=== PATIENT | female | born 1995 | race Caucasian/White ===

== ENCOUNTER 2017-08-19 11:58 | Emergency (ER) | payer OTHER ==
[~2017-08-19] VITALS: Ht 170.2 cm; Wt 90.6 kg
[~2017-08-19 11:58] MED LIST: ATV/1 PO; BUPR-79 PO; CHOL100040 PO; CIPR-255 PO; CRY28 PO; EFF/375 PO; EFF75 PO; LEVO88TA PO; MXL10 PO; PANT40TA PO
[2017-08-19 12:00] VITALS: Ht 170.2 cm; Wt 90.6 kg
--- NOTE | 2017-08-19 12:27 | EMERGENCY ROOM VISIT NOTE ---
History First contact with patient: 12:10 Chief Complaint: HEAD INJURY (MINOR) Stated Complaint: HEAD INJURY,VOMITING History of Present Illness The patient is a 21 year old female who presents to the Emergency Room with complaints of a closed head injury. The patient reports that last night, she was playing with her cat and struck her head off of her metal bed frame. She states that she felt nauseous and vomited one time right afterward. Today, her nausea has resolved but she still has a mild headache as well as sensitivity to loud noises and bright lights. She states the injury occurred approximately 10 hours ago. She rates her overall discomfort a 2/10. She denies any confusion, numbness, weakness, blurred vision or slurred speech. Review of Systems A complete 10 point review of systems was reviewed with the patient with pertinent positives and negatives as per history of present illness. All else were negative. Past Medical/Surgical History Medical Problems: (1) Anemia (2) Anxiety (3) Cabello esophagus (4) Bronchitis (5) Stomach problems Surgical Problems: (1) History of wisdom tooth extraction Family History FH: sleep apnea Fhx: arrythmia Social History Smoking Status: Never Smoker Alcohol Use: occasionally Drug Use: none Marital Status: single Housing Status: lives alone Occupation Status: employed, [employer] student Current/Historical Medications Scheduled Cholecalciferol (Vitamin D-1000), 2,000 UNITS PO QAM Levothyroxine Sodium (Synthroid), 88 MCG PO QAM Pantoprazole (Protonix), 40 MG PO QAM Venlafaxine Hcl (Effexor), 37.5 MG PO DAILY Scheduled PRN Lorazepam (Ativan), 1 MG PO Q6H PRN for Anxiety/Agitation Rizatriptan Benzoate (Rizatriptan Benzoate), 10 MG PO UD PRN for Migraine Miscellaneous Medications Iud's (Paragard Intrauterine Core Carrier) Physical Exam Vital Signs Date Time Temp Pulse Resp B/P (MAP) Pulse Ox O2 Delivery O2 Flow Rate FiO2 08/19/17 12:32 36.7 83 16 114/76 97 08/19/17 12:04 16 97 08/19/17 12:00 36.7 83 16 114/76 97 Room Air Physical Exam VITALS: Vitals are noted on the nurse's note and reviewed by myself. Vital signs stable. GENERAL: This is a 21-year-old female, in no acute distress, nondiaphoretic, well-developed well-nourished. SKIN: The skin was without erythema, edema, or bruising. EARS: External auditory canals clear, tympanic membranes pearly michaels without erythema or effusion bilaterally. No hemotympanum. EYES: Pupils equal round and reactive to light and accommodation. Extraocular movements intact. MOUTH: Mucous membranes moist. NECK: Supple without nuchal rigidity. Cervical spine is nontender. HEART: Regular rate and rhythm without murmurs gallops or rubs. LUNGS: Clear to auscultation bilaterally without wheezes, rales or rhonchi. MUSCULOSKELETAL: Strength 5/5 throughout. NEURO: Patient was alert and oriented to person place and time. Deep tendon reflexes 2+ throughout. No focal neurological deficits. Medical Decision & Procedures Medical Decision Differential diagnosis includes concussion, subarachnoid hemorrhage, epidural hematoma, subdural hematoma, skull fracture, among others. The patient was evaluated as above. The patient is well-appearing. There is no evidence of a significant head injury on exam or by history. The patient was reassured. Head injury precautions were reviewed with the patient. She will follow-up with her primary care provider as needed. She verbalized understanding of my assessment and treatment plan and was discharged home in good condition. Head Trauma GCS Score: 15 Medication Reconcilliation Current Medication List: was personally reviewed by me Blood Pressure Screening Patient's blood pressure: Normal blood pressure Impression Primary Impression: Closed head injury Departure Information Dispostion Home / Self-Care Condition GOOD Referrals No Doctor, Assigned (PCP) Patient Instructions ED Head Injury Closed, My [facility] Additional Instructions You have been treated in the Emergency Department for a Closed Head Injury. For pain control, you can use the following [id number] medicines (if >12 yo): - Regular strength (325mg/tab) Tylenol (acetaminophen) 2 tabs every 4-6 hours as needed. Do not exceed 12 tablets in a 24 hour period. Avoid taking more than 4 grams (4000 mg) of Tylenol per day. This includes any other sources of acetaminophen you may take on a regular basis. You should relax in a quiet, dark place for the rest of the day. Avoid any possible triggers including: cigarette smoke, caffeine, nicotine, chocolate, wine, beer, loud noises or music, or bright lights. Follow-up with your primary care provider as needed for any persistent or worsening symptoms. Return to the Emergency Department if your current symptoms worsen despite treatment course outlined above, or if you develop any of the following symptoms : intractable pain despite aforementioned treatment course, visual disturbances , loss of vision, unilateral weakness or facial drooping, slurring of speech, loss of coordination, or loss of consciousness. Problem Qualifiers Primary Impression: Closed head injury Encounter type: initial encounter Qualified Codes: S09.90XA - Unspecified injury of head, initial encounter
[2017-08-19] MEDS ORDERED: RIZA1TAB7 PO (12:29)
[2017-08-19] MEDS ORDERED: IUD'IUD (12:29)
[2017-08-19 12:32] VITALS: BP 114/76; PULSE 83; TEMP 36.7; O2SAT 97
== END 2017-08-19 12:32 | disposition home or self-care (01) ==
LOC: C.EDB 12:00 → C.EDD 12:32
DX: S09.90XA Unspecified injury of head, initial encounter (principal); W22.8XXA Striking against or struck by other objects, initial encounter; Y92.013 Bedroom of single-family (private) house as the place of occurrence of the external cause; D64.9 Anemia, unspecified; F41.9 Anxiety disorder, unspecified; K22.70 Barrett's esophagus without dysplasia; Z82.49 Family history of ischemic heart disease and other diseases of the circulatory system; Z79.899 Other long term (current) drug therapy

== ENCOUNTER 2023-09-27 05:44 | Inpatient (IN) ==
--- NOTE | 2023-09-18 13:23 | Anesthesiology Consultation ---
Date of Service September 18, 2023 Assessment & Plan (1) Encounter for pre-operative examination: - Per core carrier on 09/18/23: No known infectious disease contacts, current infectious disease symptoms in past 10 days or COVID positive test result in the past 30 days. Chart Review Chart Review: data entry operator initiated History Surgery Operation Date: 09/27/23 07:30 Proposed Procedures p Section (Delivery of Baby Through Abdominal Incision) - Jayda Graf, Height/Weight Height: 5 ft 7 in Weight: 97.522 kg Allergies Allergy/AdvReac Type Severity Reaction Status Date / Time Sulfa (Sulfonamide Allergy Intermediate unsure - Verified 09/18/23 13:14 Antibiotics) as a child latex Allergy Unknown RASH WITH Verified 09/18/23 13:14 EXTENDED USE Medications Home Medications Medication Instructions Recorded Confirmed Last Taken cetirizine 10 mg tablet (Zyrtec) 10 mg PO DAILY PRN ALLERGIES 08/05/21 09/18/23 12/18/22 07:00 psyllium husk 0.52 gram capsule 0.52 g PO QAM 05/18/22 09/18/23 12/18/22 07:00 (Fiber (psyllium husk)) [id number] 1 dose PO QAM 02/01/23 09/18/23 Unknown [ Formula-DHA] pantoprazole 40 mg tablet,delayed 40 mg PO QAM #90 tabs 06/25/23 09/18/23 Unknown release levothyroxine 125 mcg tablet 125 mcg PO QAM 06/26/23 09/18/23 Unknown venlafaxine 150 mg 150 mg PO QAM #90 caps 08/30/23 09/18/23 Unknown capsule,extended release 24 hr Iron-C 1 tab PO Q OTHER DAY 09/18/23 09/18/23 Unknown Past Medical History Medical History Anemia Anxiety Barretts esophagus Depression GERD (gastroesophageal reflux disease) Hx of migraines Hypothyroidism Palpitations Previously evaluated by cardiology - + PVCs.; "TENDS TO GET THEM WHEN SHE IS STRESSED" Sciatic pain LEFT SIDE Past Family History Family History Grandmother (Maternal) Lung cancer Uncle Clotting disorder Father Parkinson disease Mother Thyroid disease Awais's disease Denies family history of Ovarian cancer Prostate cancer Diabetes Myocardial infarction Breast cancer Colorectal cancer Stroke Past Surgical History Surgical History History of esophagogastroduodenoscopy (EGD) Hx of colonoscopy Hx of wisdom tooth extraction S/P epidural steroid injection FEW YEARS AGO, "SLIPPED DISC IN HER L4-L5 AREA" Social History Smoking Status: Never smoker Do You Dip or Chew Tobacco: No Hx Alcohol Use: Yes Alcohol type: hard liquor alcohol intake frequency: holidays/special occasions only Hx Substance Use: No substance use type: does not use Lab Results Anesthesia Preop Results Results Anesthesia Widget: TSH 2.162 uIu/ml (0.300-4.500) 08/31/23
--- NOTE | 2023-09-26 13:31 | History & Physical Report ---
Date of Service September 26, 2023 Assessment & Plan (1) Supervision of normal first : Plan: Reviewed consent in office. Plan for primary section. Questions answered. History of Present Illness Chief Complaint: elective primary section Primary Care Provider: Bony iSmeon, DO 27yo with EDC 09/29/23 electing primary section. 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 *plan echo-[facility] [place]06/12/23-normal Hypothyroid *Check TFTs Q4wks Influenza Vaccination given 05/11/23 - SP C/S SCHEDULED FOR 10/05/[address] C/S RESCHEDULED FOR 09/27/[address] JORDON OSWALD Allergies Allergy/AdvReac Type Severity Reaction Status Date / Time Sulfa (Sulfonamide Allergy Intermediate unsure - Verified 09/26/23 10:40 Antibiotics) as a child latex Allergy Unknown RASH WITH Verified 09/26/23 10:40 EXTENDED USE Home Medications Medication Instructions Recorded Confirmed Type cetirizine 10 mg tablet (Zyrtec) 10 mg PO DAILY PRN ALLERGIES 08/05/21 09/26/23 History psyllium husk 0.52 gram capsule 0.52 g PO QAM 05/18/22 09/26/23 History (Fiber (psyllium husk)) [id number] 1 dose PO QAM 02/01/23 09/26/23 History [ Formula-DHA] pantoprazole 40 mg tablet,delayed 40 mg PO QAM #90 tabs 06/25/23 09/26/23 Rx release levothyroxine 125 mcg tablet 125 mcg PO QAM 06/26/23 09/26/23 History venlafaxine 150 mg 150 mg PO QAM #90 caps 08/30/23 09/26/23 Rx capsule,extended release 24 hr Iron-C 1 tab PO Q OTHER DAY 09/18/23 09/26/23 History Patient History Medical History Anemia Anxiety Barretts esophagus Depression GERD (gastroesophageal reflux disease) Hx of migraines Hypothyroidism Palpitations Previously evaluated by cardiology - + PVCs.; "TENDS TO GET THEM WHEN SHE IS STRESSED" Sciatic pain LEFT SIDE Surgical History History of esophagogastroduodenoscopy (EGD) Hx of colonoscopy Hx of wisdom tooth extraction S/P epidural steroid injection FEW YEARS AGO, "SLIPPED DISC IN HER L4-L5 AREA" Family History Grandmother (Maternal) Lung cancer Uncle Clotting disorder Father Parkinson disease Mother Thyroid disease Awais's disease Denies family history of Ovarian cancer Prostate cancer Diabetes Myocardial infarction Breast cancer Colorectal cancer Stroke Social History Smoking Status: Never smoker Second Hand Exposure: No; Do You Dip or Chew Tobacco: No; Hx Alcohol Use: Yes Alcohol type: hard liquor Alcohol type Comment: cocktails Alcohol Intake Frequency: Monthly or Less Alcohol Intake Frequency Comment: once a week Hx Substance Use: No Preferred Language: Divehi Communication Ability: Effective Visual Impairment: Limited Hearing Ability: Normal 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 Beliefs That Will Affect Care: None marital status: Single marital status details: Terence Conner 30 Current Living Situation: Spouse and Family current occupational status: employed current occupation: [employer] How many Children do You have: 0 Feels Safe at Home: Yes Childhood Exposure to Second-Hand Smoke: No caffeine: Yes Dental Care, Regularly: Yes Physical Activity Frequency: 3-4 Times per Week Seatbelt Use: always Sunscreen Use: Yes (most times ) Assistive Devices: Glasses Review of Systems All systems reviewed & are unremarkable except as noted in HPI & below Physical Exam Constitutional: WD/WN, vitals as above Respiratory: normal respiratory effort, lungs clear to auscultation no respiratory distress Cardiovascular: Rate/Rhythm: regular rate and regular rhythm Gastrointestinal (Abdomen): Inspection/Auscultation: abdomen normal to inspection Percussion/Palpation: abdomen soft; abdomen nontender Gravid. No s/s chorio or abruption. Skin: no rashes, warm and dry Psychiatric: A+Ox3, euthymic affect Coding Level of Care Code None Diagnoses Supervision of normal first Z34.00
[2023-09-27] MEDS: LACTATED RINGER'S 1,000 ML IV SCH (06:10)
[2023-09-27 06:19] LABS: Basophils # (auto) 0.06 K/uL (0.00-0.20); Basophils % (auto) 0.7 %; Eosinophils # (auto) 0.07 K/uL (0.00-0.50); Eosinophils % (auto) 0.8 %; Hematocrit (blood only) 35.7 % (37.0-47.0); Immature Granulocytes # (auto) 0.08 K/uL (0.01-0.20); Immature Granulocytes % (auto) 0.9 %; Lymphocytes # (auto) 2.56 K/uL (1.20-3.40); Lymphocytes % (auto) 28.8 %; Mean Corpuscular Hemoglobin 24.6 pg (25.0-34.0); Mean Corpuscular Hgb Conc 30.8 g/dL (32.0-36.0); Mean Corpuscular Volume 79.7 fL (80.0-100.0); Mean Platelet Volume 11.5 fL (9.4-12.4); Monocytes # (auto) 1.06 K/uL (0.11-0.59); Monocytes % (auto) 11.9 %; Neutrophils # (auto) 5.05 K/uL (1.40-6.50); Neutrophils % (auto) 56.9 %; Platelet Count 217 K/uL (130-400); RDW Coefficient of Variation 18.3 % (11.5-14.5); Red Blood Count 4.48 M/uL (4.20-5.40); White Blood Count 8.88 K/ul (4.8-10.8)
[2023-09-27] MEDS ORDERED: OXYTOCIN 10 UNITS/ML VIAL ONE (06:50)
[2023-09-27] MEDS ORDERED: MoRPHine SULFATE PF 1 MG/ML 10 ML AMP/VIAL ONE (06:52)
[2023-09-27] MEDS ORDERED: PHENYLEPHRINE 100MCG/ML 10ML SYR IV ONE (06:52)
[2023-09-27] MEDS ORDERED: fentaNYL citrate PF 100 MCG/2 ML VIAL ONE (06:52)
[2023-09-27] MEDS ORDERED: ONDANSETRON INJ 2 MG/ML 2 ML VIAL ONE (06:52)
[2023-09-27] MEDS: CITRIC ACID/SODIUM CITRATE 15 ML UDC PO SCH (07:10)
--- NOTE | 2023-09-27 07:18 | History & Physical Bridge Note ---
Date of Service September 27, 2023 History & Physical Bridge Note I have examined the patient, reviewed the History & Physical and in the interval since the performance of the History & Physical I have noted the following changes of clinical significance: no changes noted
[2023-09-27] MEDS: ceFAZolin 2000MG 2,000 MG/15 ML SYR IV SCH (07:35)
[2023-09-27] MEDS ORDERED: NALOXONE HCL 1 MG in SODIUM CHLORIDE 0.9% 1,000 ML IV PRN (08:11)
[2023-09-27] MEDS ORDERED: HYDROmorphone INJ 0.5 MG/0.5 ML SYR IV PRN (08:11)
[2023-09-27] MEDS ORDERED: NALOXONE HCL 0.08 MG in SYRINGE 1.8 ML IV PRN (08:11)
[2023-09-27] MEDS ORDERED: ePHEDrine sulfate 50 MG/ML AMP IV PRN (08:11)
[2023-09-27] MEDS ORDERED: LACTATED RINGER'S 500 ML IV PRN (08:11)
[2023-09-27] MEDS ORDERED: ONDANSETRON INJ 2 MG/ML 2 ML VIAL IV PRN (08:11)
[2023-09-27] MEDS ORDERED: diphenhydrAMINE 50 MG/ML VIAL IV PRN (08:11)
[2023-09-27] MEDS ORDERED: PROMETHAZINE HCL 6.25 MG in SODIUM CHLORIDE 0.9% 50 ML IV PRN (08:11)
[2023-09-27] MEDS ORDERED: NALBUPHINE HCL 5 MG in SYRINGE 0 ML IV PRN (08:11)
[2023-09-27] MEDS ORDERED: NALOXONE HCL 0.4 MG/1 ML VIAL/CARP IV PRN (08:11)
[2023-09-27] MEDS ORDERED: NO NARCOTICS OR SEDATIVES SCH (08:15)
[2023-09-27] MEDS ORDERED: DC INTRASPINAL MORPHINE SCH (08:15)
[2023-09-27 08:44] LABS: Base Excess Cord Venous Blood -1.8 mEq/L (-7.7-1.9); Cord Venous Blood HCO3 24 mmol/L (18.4-26.8); Cord Venous Blood PCO2 42 mmHg (30.4-57.2); Cord Venous Blood PO2 22 mmHg (14.1-43.3); Cord Venous Blood pH 7.36 (7.20-7.44); O2 Saturation Cord Venous Bld < 60.0 % (<68)
--- NOTE | 2023-09-27 08:50 | Operative Report ---
PG Post Operative Report Pre & Post Diagnosis Operation Date: 09/27/23 07:30 Pre-Op Diagnosis: 1. Term 2. Elective primary Post-Op Diagnosis: same I identified the patient and participated in the time-out.: Yes Procedure Operation Date: 09/27/23 07:30 Actual Procedures p Section in LD; primary low transverse section for the of a live boy infant at 0804 - Jayda Graf DO Surgeon Jayda Graf DO Rail Equipment Operator Tresa Morales RN Estimated Blood Loss 600 Findings Consistent with Post-Op Diagnosis Viable male , Apgars 8/8. Weight pending, please see nursery records. Normal appearing uterus, tubes, ovaries. Specimens placenta, cord blood, cord gas Drains gustafson, clear yellow Anesthesia Type Spinal Complications none Disposition Accompanied Patient To Recovery: No Indications 27yo @ 39 5/7, elective primary section. Description of Procedure The patient was seen in her labor and delivery room, risks benefits and alternatives to surgery were reviewed. Informed consent obtained. Questions were answered. She was taken to the operating room, spinal anesthesia was administered. She was then prepared and draped in the usual sterile fashion in the supine position with a leftward tilt. Timeout was confirmed. A Pfannenstiel skin incision was made with a scalpel, and carried through to the underlying layer of fascia. Fascia was nicked at midline, and this incision was extended bilaterally. The superior aspect of the fascial incision was grasped with Pantera clamps x2, elevated off the underlying rectus abdominis muscles, and dissected sharply and bluntly. In similar fashion, the inferior aspect of the fascial incision was dissected. The rectus abdominis muscles were , and the peritoneum was entered bluntly digitally. This was extended bilaterally. The bladder flap was taken down carefully using Metzenbaum scissors. Using a new scalpel, a low transverse uterine incision was created. Clear amniotic fluid noted. The was delivered from a cephalic presentation. The head delivered, followed by shoulders and body. Spontaneous cry on the field. The cord was doubly clamped and cut, and the infant was handed off to the waiting systems coordinator. A segment was retained for cord gases. Cord blood was obtained. The placenta was delivered spontaneously intact. The uterus was exteriorized, and cleared of all clots and debris. The hysterotomy incision was reapproximated using 0 Vicryl in a running locked stitch. A second layer of the same suture was used to imbricate the incision. Posterior uterus was evaluated and normal. The uterus was returned to the abdomen, and gutters were cleared of clots and debris. Excellent hemostasis was observed. The fascial incision was reapproximated using 0 Vicryl in a running stitch. The subcutaneous tissue was irrigated, and reapproximated using 2-0 plain gut in a running stitch. The skin was reapproximated using 4-0 Vicryl in a running subcuticular stitch. Steri-Strips and a bandage were applied. The patient tolerated the procedure well, and will be taken to the recovery area in stable and good condition. Sponge, needle, instrument counts correct x 2. I attest to the content of the Intraoperative Record and any orders documented therein. Any exceptions are noted below. OB Procedure Charges 74955
--- NOTE | 2023-09-27 08:52 | Anesthesiology Progress Note ---
Date of Service September 27, 2023 Anesthesia Post Procedure Vital Signs Vital Signs: Temp Pulse Resp BP Pulse Ox 09/27/23 08:48 98 H 120/61 100 09/27/23 06:10 123 H 110/68 09/27/23 05:57 36.7 C 18 Transfer of Care Handoff Completed per policy Notes Mental Status: alert / awake / arousable and participated in evaluation Patient Amnestic to Procedure: No Nausea / Vomiting: adequately controlled Pain: adequately controlled Airway Patency, RR, SpO2: stable & adequate BP & HR: stable & adequate Hydration State: stable & adequate Neuraxial Anesthesia: was administered and sensory block is resolving Anesthetic Complications: no major complications apparent and Pt Satisfied with anesthetic care
[2023-09-27] MEDS ORDERED: SENNA 8.6 MG TAB PO PRN (09:38)
[2023-09-27] MEDS ORDERED: MAGNESIUM HYDROXIDE SUSP 30 ML UDC PO PRN (09:38)
[2023-09-27] MEDS ORDERED: CETIRIZINE HCL 10 MG TABLET PO PRN (09:38)
[2023-09-27] MEDS ORDERED: HYDROCORTISONE ACETATE 25 MG SUPP PR PRN (09:38)
[2023-09-27] MEDS ORDERED: BENZOCAINE 20% SPRY 85 APPLN/85 GM CAN EXT PRN (09:38)
[2023-09-27] MEDS: KETOROLAC 30 MG/ML VIAL IV PRN (10:00)
[2023-09-27] MEDS: OXYTOCIN 30 UNITS/LR 1,003 ML IV SCH (12:05)
[2023-09-27] MEDS: LEVOTHYROXINE SODIUM 137 MCG TABLET PO SCH (15:28)
[2023-09-27] MEDS: PANTOprazole 40 MG TAB PO SCH (15:28)
[2023-09-27] MEDS: VENLAFAXINE HCL XR 150 MG CAPXR PO SCH (15:28)
[2023-09-27] MEDS: SIMETHICONE 80 MG CHEW PO SCH (15:31)
[2023-09-27] MEDS: DIPHTHER/TETAN/PERTUS Vaccine (Tdap, Adol/Adult) 0.5mL IM ONE (15:40)
[2023-09-27] MEDS: DOCUSATE SODIUM 100 MG CAP PO SCH (21:06)
[2023-09-28] MEDS ORDERED: KETOROLAC 30 MG/ML VIAL IV PRN (02:12)
[2023-09-28] MEDS ORDERED: diphenhydrAMINE 50 MG/ML VIAL IV PRN (02:12)
[2023-09-28] MEDS ORDERED: PROMETHAZINE HCL 25 MG in SODIUM CHLORIDE 0.9% 50 ML IV PRN (02:12)
[2023-09-28] MEDS ORDERED: ONDANSETRON INJ 2 MG/ML 2 ML VIAL IV PRN (02:12)
[2023-09-28] MEDS ORDERED: diphenhydrAMINE Capsule 25 MG CAP PO PRN (02:12)
[2023-09-28] MEDS: IBUPROFEN 600 MG TAB PO PRN (02:32)
[2023-09-28 06:24] LABS: Basophils # (auto) 0.05 K/uL (0.00-0.20); Basophils % (auto) 0.4 %; Eosinophils # (auto) 0.04 K/uL (0.00-0.50); Eosinophils % (auto) 0.4 %; Hematocrit (blood only) 33.1 % (37.0-47.0); Hemoglobin 10.2 g/dl (12.0-16.0); Immature Granulocytes % (auto) 0.9 %; Lymphocytes # (auto) 1.79 K/uL (1.20-3.40); Lymphocytes % (auto) 15.7 %; Mean Corpuscular Hemoglobin 24.7 pg (25.0-34.0); Mean Corpuscular Hgb Conc 30.8 g/dL (32.0-36.0); Mean Corpuscular Volume 80.1 fL (80.0-100.0); Mean Platelet Volume 12.4 fL (9.4-12.4); Monocytes # (auto) 1.05 K/uL (0.11-0.59); Monocytes % (auto) 9.2 %; Neutrophils # (auto) 8.39 K/uL (1.40-6.50); Neutrophils % (auto) 73.4 %; Platelet Count 178 K/uL (130-400); RDW Coefficient of Variation 18.3 % (11.5-14.5); RDW Standard Deviation 51.2 fL (36.4-46.3); Red Blood Count 4.13 M/uL (4.20-5.40); White Blood Count 11.42 K/ul (4.8-10.8)
[2023-09-28] MEDS: SODIUM CHLORIDE 0.9% 1,000 ML IV SCH (07:12)
[2023-09-28] MEDS: MoRPHine SULFATE PF 1 MG/ML 10 ML AMP/VIAL INT SPINAL ONE (07:12)
--- NOTE | 2023-09-28 07:35 | Obstetrical Progress Note ---
Date of Service September 28, 2023 Assessment & Plan (1) care following delivery: POD#1 doing well. well. Would prefer to avoid ibuprofen if possible, as it irritates her stomach. Continue routine postop care. Anticipate DC home tomorrow. Subjective Ambulation: ambulating normally Voiding: no voiding problems Diet Tolerance:: regular diet Lochia:: Moderate Review of Systems All systems reviewed & are unremarkable except as noted in HPI & below Physical Exam Constitutional WD/WN, vitals as above no acute distress Respiratory normal respiratory effort Cardiovascular Rate/Rhythm: regular rate and regular rhythm Gastrointestinal (Abdomen) Inspection/Auscultation: abdomen normal to inspection; abdomen not distended Percussion/Palpation: abdomen soft Genitourinary OB Exam Abdomen: + fundal height Fundus: + firm; not tender Results & Data Vital Signs (Past 12 Hours) Vital Signs Temp Pulse Pulse Resp BP Pulse Ox O2 Del Method 09/28/23 04:13 36.6 C 88 16 94/57 L 97 Room Air 09/28/23 02:09 18 95 09/28/23 01:10 16 96 09/28/23 00:26 16 97 09/28/23 00:00 36.6 C 88 16 111/74 97 Room Air 09/27/23 23:34 18 97 09/27/23 22:35 16 96 09/27/23 21:45 16 98 09/27/23 20:50 20 100 09/27/23 19:37 Room Air 09/27/23 19:37 18 97
[2023-09-28] MEDS: PRENATAL VITAMIN 1 TAB PO SCH (08:16)
[2023-09-28] MEDS: FERROUS SULFATE 325 MG TAB PO SCH (08:16)
[2023-09-28] MEDS: ACETAMINOPHEN 500 MG TAB PO PRN (11:00)
[2023-09-28] MEDS: oxyCODONE/ACETAMINOPHEN 5mg/325mg TAB PO PRN (17:19)
[2023-09-28] MEDS: bisacodyL 5 MG TABEC PO SCH (22:18)
[2023-09-29] MEDS: LACTATED RINGER'S 1,000 ML IV SCH (02:35)
[2023-09-29 06:34] LABS: Hemoglobin 9.3 g/dl (12.0-16.0)
--- NOTE | 2023-09-29 08:17 | Obstetrical Progress Note ---
Date of Service September 29, 2023 Assessment & Plan (1) care following delivery: Day 2 status post primary section. Patient doing well and prefers discharge. Patient stable for discharge and orders will be placed. Will provided with written and verbal discharge instructions. Subjective Ambulation: ambulating normally Voiding: no voiding problems Passing Gas:: Yes Diet Tolerance:: regular diet Lochia:: Moderate Feeding Type:: breast feeding Physical Exam Constitutional WD/WN, vitals as above Respiratory normal respiratory effort; no respiratory distress and no labored breathing Gastrointestinal (Abdomen) Inspection/Auscultation: abdomen normal to inspection; abdomen not distended Percussion/Palpation: abdomen soft; abdomen nontender, no guarding and abdomen not rigid Incision healing well Genitourinary OB Exam Abdomen: + fundal height Fundus: + firm and + relation to umbilicus (Below); not tender or not boggy Results & Data Vital Signs (Past 12 Hours) Vital Signs Temp Pulse Resp BP Pulse Ox O2 Del Method 09/28/23 22:36 36.9 C 80 18 102/70 97 Room Air
[2023-09-29] MEDS ORDERED: bisacodyL 10 MG SUPP PR PRN (08:52)
--- NOTE | 2023-10-04 15:04 | Discharge Summary ---
Date of Service October 04, 2023 Admission HPI Per Admitting Provider 27yo with EDC 09/29/23 electing primary section. 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 *[place] [place]normal Hypothyroid *Check TFTs Q4wks Influenza Vaccination given 05/11/23 - SP C/S SCHEDULED FOR 10/05/[address] C/S RESCHEDULED FOR 09/27/[address] JAYDA GRAF Discharge Data Consultations 09/27/23 05:48 Consult Anesthesiology Stat Procedures Performed Operation Date: 09/27/23 07:30 Actual Procedures p Section in LD; primary lower uterine transverse section for the of a live boy infant at 0804(Bilateral) - Jayda Graf DO Hospital Course (1) care following delivery: Admitted for scheduled planned primary section at term. Routine postop care. DC home POD2. Please see chart for further details. Coding Level of Care Code None Diagnoses care following delivery Z39.2
== END 2023-09-29 13:55 | disposition home or self-care (01) | DRG 788 ==
LOC: 4S1 05:44 → 4E2 10:55 → EDSTATUS 10-05 08:50
DX: O99.824 Streptococcus B carrier state complicating childbirth; O99.284 Endocrine, nutritional and metabolic diseases complicating childbirth; Z37.0 Single live birth; Z3A.39 39 weeks gestation of pregnancy